=== PATIENT | male | born 1975 | race Caucasian/White ===

== ENCOUNTER 2016-12-29 21:42 | Inpatient (IN) | payer BC, OTHER ==
[~2016-12-29] VITALS: Ht 175.3 cm; Wt 64.0 kg
--- NOTE | 2016-12-29 22:17 | NUR ---
PREADMISSION NOTE: alert, 41 year old, well-nourished caucasion male met in [facility] for nurse assess. Patient responds to nurse's greeting and introduction with, " Yes, ma'am". Patient's color is light tannish-pink and his skin is clean, warm, dry and intact. Patient states that he is allergic to Neosporin and "any medication that contains Neosporin". Patient denies any pain and states that he has " never" had a seizure. Patient states that he has a history of anxiety, depression and asthma, though he states that he has not used Albuterol Inhaler for months. Patient states, " I think this [place] weather might kick up my asthma here". Vital signs are: [id number] 116/68, O2 Sat 98%. [facility] floor protocol ( medication reconciliation, controlled medication disposal, Q 4hr V/S) explained to patient and patient then nodded his head and said, " Okay". Patient is admitted for Heroin withdrawal. Patient states, " All I do is heroin".
--- NOTE | 2016-12-29 22:49 | NUR ---
ADMISSION NOTE: Patient admitted ambulatory to [facility], to room # 319, after being given tour of floor by ENVIRONMENT COORDINATOR. Patient's gait is brisk and steady. Patient is oriented to person, place, day, date and his personal situation. Easily reoriented to time. Patient's lung sounds have scattered rhonchi and wheezed noted bilaterally per auscultation and patient states, " I may want a breathing treatment later on, but I feel okay for now". Patient denies any pain and he weighs 141 lbs and he is 5 feet and 9 inches tall. Patient states that he has brought no medications with him and he really does not take any regular meds at home. Patient denies any PCP and he states that this admission is only his 2nd drug detox admission. His only other admission was in 2011, for 30 days, in [place], [place], at a place called [facility]. Patient is admitted for heroin withdrawal. Patient states that he uses Heroin daily, 1 gram IV. Last use was today, 12/29/16 in early afternoon, 1/2 gram IV. Patient states that he first started using heroin in 2004 and he has been using at current rate of 1 gram daily for about 2 years now. Patient's longest period of sobriety was for 2 months, in 2013. Patient states that he is really serious about quitting heroin and 'wants to reclaim his life' before he started using heroin. Vital signs are: [id number] 130/79, O2 Sat 96%, COWS 3. Patient oriented to his room and nurse call light. Patient took sandwich snack, cookies and juices. Patient is cooperative and verbally appropriate when interacting with nurse, though he is guarded, somewhat suspicious in manner/affect. Bed is locked and in lowest position, bed rails are up X 1 and call light within patient's easy reach.
[2016-12-29 22:53] LABS: *AMPHETAMINE, URINE NEGATIVE (NEGATIVE); *BARBITURATE, URINE NEGATIVE (NEGATIVE); *CANNABINOID, URINE NEGATIVE (NEGATIVE); *COCCAINE, URINE NEGATIVE (NEGATIVE); *OPIATE, URINE POSITIVE (NEGATIVE); *PHENCYCLIDINE SCREEN,URINE NEGATIVE (NEGATIVE)
[2016-12-29] MEDS ORDERED: MIRALAX 17 GM POWD.PACK PO PRN (23:00)
[2016-12-29] MEDS ORDERED: LOPERAMIDE HCL 2 MG CAPSULE PO PRN ×2 (23:00)
[2016-12-29] MEDS ORDERED: ACETAMINOPHEN 325 MG TABLET PO PRN (23:00)
[2016-12-29] MEDS ORDERED: IBUPROFEN 400 MG TABLET PO PRN (23:00)
[2016-12-29] MEDS ORDERED: MAGNESIUM HYDROXIDE 30 ML LIQUID UDC PO PRN (23:00)
[2016-12-29] MEDS ORDERED: MAG HYDROX/AL HYDROX/SIMETH 30 ML LIQUID UDC PO PRN (23:00)
[2016-12-29] MEDS ORDERED: BUPRENORPHINE HCL 2 MG TAB.SUBL SL PRN (23:00)
[2016-12-29 23:32] LABS: BASOPHILS # (AUTO) 0.1 K/uL (0.0-8.0); BASOPHILS % (AUTO) 0.9 % (0.0-2.0); EOSINOPHILS # (AUTO) 0.2 K/uL (0.0-0.7); EOSINOPHILS % (AUTO) 2.6 % (0.0-7.0); HEMATOCRIT 44.5 % (40-50); LYMPHOCYTES % (AUTO) 31.3 % (20.5-51.5); MEAN CORPUSCULAR HEMOGLOBIN 29.4 UUG (27.0-31.0); MEAN CORPUSCULAR HGB CONC 34 g/dL (32.0-37.0); MONOCYTES # (AUTO) 0.5 K/UL (0.1-1.30); MONOCYTES % (AUTO) 8.5 % (0.0-11.0); NEUTROPHILS # (AUTO) 3.6 K/UL (1.8-8.9); NEUTROPHILS % (AUTO) 56.7 % (38.5-71.5); PLATELET COUNT (AUTO) 200 K/UL (150-450); RED BLOOD CELL COUNT(AUTO) 5.12 MIL/UL (4.7-6.1); WHITE BLOOD COUNT (AUTO) 6.4 K/UL (4.0-11.2)
[2016-12-29] MEDS: ALBUTEROL SULFATE 2.5 MG/3 ML NEBU NEB PRN (23:38)
[2016-12-29] MEDS ORDERED: ALBUTEROL SULFATE 2.5 MG/3 ML NEBU ONE (23:46)
[2016-12-29 23:47] LABS: ALANINE AMINOTRANSFERASE 205 U/L (16-63); ALKALINE PHOSPHATASE 65 U/L (50-136); ASPARTATE AMINOTRANSFERASE 116 U/L (15-37); BILIRUBIN,TOTAL 0.7 mg/dL (0.2-1.0); CARBON DIOXIDE 35 mmol/L (21-32); CHLORIDE 97 mmol/L (98-107); GLUCOSE 119 mg/dL (74-106); MAGNESIUM 2.1 mg/dL (1.8-2.4); POTASSIUM 4.4 mmol/L (3.5-5.1); TOTAL PROTEIN, SERUM 8.5 g/dL (6.4-8.2); UREA NITROGEN, BLOOD 12 mg/dL (7-18)
[2016-12-30] VITALS: BP 126/76
[2016-12-30 00:02] LABS: ETHANOL < 3 MG/DL (0-0)
[2016-12-30] MEDS: ALBUTEROL SULFATE 2.5 MG/3 ML NEBU NEB PRN (00:19)
[2016-12-30] MEDS: diphenhydrAMINE 50 MG CAPSULE PO PRN (00:50)
[2016-12-30] MEDS: HYDROXYZINE PAMOATE 25 MG CAPSULE PO PRN (00:50)
--- NOTE | 2016-12-30 00:50 | NUR ---
PRN MEDICATIONS: Prn Benadryl 50 mg p.o. given per request for sleep medication and Prn Vistaril 50 mg p.o. given per c/o mild anxiety.
[2016-12-30] MEDS ORDERED: diphenhydrAMINE 50 MG CAPSULE ONE (00:59)
[2016-12-30] MEDS ORDERED: HYDROXYZINE PAMOATE 25 MG CAPSULE ONE (00:59)
--- NOTE | 2016-12-30 01:50 | NUR ---
REASSESSMENT PRN MEDICATIONS: Patient is sleeping soundly with eyes closed and respirations regular, unlabored at 12.
[2016-12-30 04:00] VITALS: BP 121/75
--- NOTE | 2016-12-30 06:30 | NUR ---
0630 Patient slept a total of 6 hours and he had 2 voids and no stools. Total intake was 1,091 ml p.o. Prn medications given noted separately per floor protocol. V/SS afebrile, last COWS at 0400 is 1. Patient is presently sleeping comfortably and in stable condition with eyes closed and respirations even, quiet, unlabored at 14.
--- NOTE | 2016-12-30 07:00 | NUR ---
Start of Shift Notes: Received patient in his room. Alert and verbally responsive. Oriented x 4. Able to make his needs known. Respirations even and unlabored. No SOB noted. Skin warm and dry to touch. Abdomen soft and non-distended with (+) BS in all 4 quadrants. No complains of N/V/D or abdominal discomfort noted. Bladder non-distended. No complains of dysuria. Voids independently. Ambulatory ad trini with steady gait. Patient is a 41 year old male admitted for opiate dependence who was placed on PRNs at this time. Has past medical hx of asthma, and back discs repair. Allergic to neosporin. FULL CODE. Regular diet. On fall and seizure precautions. Educated patient on his current plan of care and his medication regimen. All needs met and attended. Will continue to monitor closely.
[2016-12-30 08:00] VITALS: BP 115/68
[2016-12-30] MEDS ORDERED: BUPRENORPHINE HCL 2 MG TAB.SUBL SL PRN (08:30)
[2016-12-30] MEDS ORDERED: PNEUMOCOCCAL 23-VAL P-SAC VAC 0.5 ML VIAL IM ONE (09:00)
[2016-12-30] MEDS ORDERED: TUBERCULIN,PURIF.PROT.DERIV. 5 TU/0.1 ML TEST ID ONE (09:00)
[2016-12-30] MEDS: MULTIVITAMINS,THERAPEUTIC TABLET PO SCH (09:00)
[2016-12-30 12:00] VITALS: BP 121/81
[2016-12-30] MEDS: CLONIDINE HCL 0.1 MG TABLET PO PRN (12:16)
--- NOTE | 2016-12-30 12:16 | NUR ---
Clonidine 0.1mg PO given: Patient noted with complain of chills, hot flashes and mild anxiety. Appears flushed. COWS 4. Medicated patient with Clonidine 0.1mg PO as ordered. Will monitor for effectiveness.
--- NOTE | 2016-12-30 13:16 | NUR ---
Re-assessment: Per patient, PRN Clonidine was effective in reducing chills, anxiety and hot flashes.
[2016-12-30 16:00] VITALS: BP 132/81
[2016-12-30] MEDS: ONDANSETRON ODT 4 MG TAB.RAPDIS SL PRN (16:27)
[2016-12-30] MEDS: METHOCARBAMOL 750 MG TABLET PO PRN (16:27)
--- NOTE | 2016-12-30 16:27 | NUR ---
Robaxin 750 mg PO and Zofran 4 mg ODT given: COWS 16. Patient presented with runny nose, goosebumps, yawning, muscle aches and pains, dilated pupils, and nausea. Medicated patient with Robaxin 750 mg PO and Zofran 4 mg ODT as ordered. Will monitor for effectiveness.
[2016-12-30] MEDS: BUPRENORPHINE HCL 2 MG TAB.SUBL SL SCH ×2 (16:33→20:21)
--- NOTE | 2016-12-30 17:27 | NUR ---
Re-assessment: Per patient, PRN Zofran and Robaxin was effective in reducing muscle aches and pains, and nausea. PL 2/10.
--- NOTE | 2016-12-30 18:51 | NUR ---
End of Shift Notes: Patient is a 41 year old male admitted for opiate dependence who is on PRNs at this time. Prior to admission, patient was using 1 gram of Heroin daily x 12 years. VS monitored closely q 4 hours. No significant abnormalities noted. Withdrawal symptoms were closely monitored. Initial COWS 1 at 0800. COWS at 1200 was 4 due to chills, anxiety and hot flashes. Medicated patient with Clonidine 0.1mg PO for chills, anxiety, hot flashes and sweats with help after 1 hour. At 1600, patient presented with COWS of 16 showing restlessness, anxiety, agitation, sweats, yawning, piloerection of the skin, runny nose and nausea. Initiated Subutex taper at this time . Unable to participate in group and activities due to his withdrawal symptoms. Last COWS 9. Compliant with care and treatment Safety precautions in place. All needs met and attended. Will continue to monitor closely.
--- NOTE | 2016-12-30 19:55 | NUR ---
START OF SHIFT Received report from day shift nurse. Pt is lying in bed resting. He is a 41 yo male admitted to [facility] on 12/29 for heroin withdrawal. He is A&O x4 and ambulatory. Allergies to bacitracin, neomycin, polymyxin B. Pt is full code status and on a regular diet. He has a PMH of asthma and disc repair. On admission he reported using heroin 1 gram per day. Pt started a 5 day subutex taper today. Pt has wheezing in all lung cardenas. He denies SOB. Encouraged PRN breathing treatment, he refused and stated, "maybe later". He reports chills, hot and cold flashes, stomach cramps, and muscle aches. He is observed to have dilated pupils. Taper due tonight. Fall and seizure precautions in place. Bed is down with call light in reach.
[2016-12-30 20:00] VITALS: BP 134/90
[2016-12-30] MEDS: DICYCLOMINE HCL 20 MG TABLET PO PRN (20:21)
[2016-12-30] MEDS: IBUPROFEN 600 MG TABLET PO PRN (20:21)
--- NOTE | 2016-12-30 20:22 | NUR ---
PRN Bentyl and Motrin Pt reports stomach cramps, body aches 8/10, and headache. PRN Bentyl and Motrin administered.
--- NOTE | 2016-12-30 21:22 | NUR ---
PRN Bentyl and Motrin reassessment PRN Bentyl effective. Pt reports relief of stomach cramps. PRN Motrin effective. Pt reports body aches are reduced to 3/10 and headache is relieved.
[2016-12-31] VITALS: BP 119/81
[2016-12-31 04:00] VITALS: BP 130/86
[2016-12-31] MEDS: METHOCARBAMOL 750 MG TABLET PO PRN (04:56)
[2016-12-31] MEDS: CLONIDINE HCL 0.1 MG TABLET PO PRN (04:57)
--- NOTE | 2016-12-31 04:59 | NUR ---
PRN Clonidine and Robaxin Pt reports he has not been sleeping well. He has hot and cold flashes, restless legs, dilated pupils, and anxiety. COWS score 8. PRN Clonidine and Robaxin administered.
--- NOTE | 2016-12-31 06:00 | NUR ---
PRN Clonidine and Robaxin reassessment PRN Clonidine and Robaxin effective. Pt is lying comfortably in bed resting. Chills, muscle aches, and anxiety improved. He has not yet fallen back to sleep. COWS score is 3. Safety measures in place.
--- NOTE | 2016-12-31 07:14 | NUR ---
END OF SHIFT Report provided to day shift nurse. Pt is lying in bed resting. He is a 41 yo male admitted to [facility] on 12/29 for heroin withdrawal. He is A&O and ambulatory. Allergic to bacitracin, neomycin, polymyxin B. He is full code status and on a regular diet. He has a PMH of asthma and disc repair. Upon admission he admitted to using heroin 1 gram per day. 5 day subutex taper was started 12/30. Fall and seizure precautions in place. Bed is down with call light in reach. PRN Bentyl, Motrin, Clonidine, and Robaxin administered. He reports that he was awake off and on throughout the night. Last COWS was 3. He drank 1000mL and slept 4 hours. Safety measures in place.
--- NOTE | 2016-12-31 07:15 | NUR ---
Start of Shift Notes: Received patient in his room. Alert and verbally responsive. Oriented x 4. Able to make his needs known. Respirations even and unlabored. No SOB noted. Skin warm and dry to touch. Abdomen soft and non-distended with (+) BS in all 4 quadrants. No complains of N/V/D or abdominal discomfort noted. Bladder non-distended. No complains of dysuria. Voids independently. Ambulatory ad trini with steady gait. Patient is a 41 year old male admitted for opiate dependence who was placed on 5-day Subutex taper as ordered . Has past medical hx of asthma, and back discs repair. Allergic to Neosporin. FULL CODE. Regular diet. On fall and seizure precautions. Educated patient on his current plan of care and his medication regimen. Safety precautions in place. Slept for 4 hours. PRN Bentyl, Motrin, Robaxin and Clonidine was given during the night. All needs met and attended. Will continue to monitor closely.
[2016-12-31 08:00] VITALS: BP 119/75
[2016-12-31 08:08] LABS: HEPATITIS B SURFACE AG Negative (Negative)
[2016-12-31] MEDS: BUPRENORPHINE HCL 2 MG TAB.SUBL SL SCH ×3 (08:28→21:10)
[2016-12-31] MEDS: IBUPROFEN 600 MG TABLET PO PRN (08:28)
[2016-12-31] MEDS: MULTIVITAMINS,THERAPEUTIC TABLET PO SCH (08:28)
--- NOTE | 2016-12-31 08:28 | NUR ---
PRN Motrin 600 mg PO given: Patient noted with complain of generalized muscle aches 5/10 related to his withdrawal symptoms. Redirection provided but did not help. Mediated patient with Motrin 600 mg PO as ordered. Will monitor for effectiveness.
--- NOTE | 2016-12-31 09:28 | NUR ---
Re-assessment: Per patient, PRN Motrin was effective in reducing patient's muscle aches. PL 08/15.
[2016-12-31 12:00] VITALS: BP 116/77
--- NOTE | 2016-12-31 12:15 | NUR ---
Therapist prompted client to attend daily group therapy sessions. Client stated that is not interested in attending at this time.
[2016-12-31] MEDS: GABAPENTIN 300 MG CAPSULE PO SCH ×2 (14:09→21:10)
[2016-12-31] MEDS: BACLOFEN 10 MG TABLET PO SCH ×2 (14:09→21:10)
[2016-12-31 16:00] VITALS: BP 133/76
--- NOTE | 2016-12-31 18:50 | NUR ---
End of Shift Notes: Patient is a 41 year old male admitted for opiate dependence who is on PRNs at this time. Prior to admission, patient was using 1 gram of Heroin daily x 12 years. VS monitored closely q 4 hours. No significant abnormalities noted. Withdrawal symptoms were closely monitored. Initial COWS 7, presented with restlessness, anxiety, agitation, sweats, chills, hot flashes and myalgia. Medicated patient with Motrin 600mg PO as ordered for myalgia with help after 1 hour. Last COWS 3. Per patient, Subutex has been helping him with his withdrawal symptoms. Participated in group and activities due to his withdrawal symptoms. Compliant with care and treatment Safety precautions in place. All needs met and attended. Will continue to monitor closely.
--- NOTE | 2016-12-31 19:50 | NUR ---
START OF SHIFT Received report from day shift nurse. Pt is lying in bed watching TV. He is a 41 yo male admitted to [facility] on 12/29 for heroin withdrawal. He is A&O x4 and ambulatory. Pt is allergic to bacitracin, neomycin, polymyxin B. He is full code status and on a regular diet. His past medical history consists of asthma and disc repair. Upon admission he admitted to using heroin 1 gram per day. Pt started a 5 day subutex taper on 12/30. He presents with stomach cramps, nausea, dilated pupils, muscle aches, and anxiety. Taper due tonight. Fall and seizure precautions in place. Bed is down with call light in reach.
[2016-12-31 20:00] VITALS: BP 128/87
[2016-12-31] MEDS: diphenhydrAMINE 50 MG CAPSULE PO PRN (21:10)
[2016-12-31] MEDS: DICYCLOMINE HCL 20 MG TABLET PO PRN (21:10)
[2016-12-31] MEDS: ONDANSETRON ODT 4 MG TAB.RAPDIS SL PRN (21:10)
--- NOTE | 2016-12-31 21:11 | NUR ---
PRN Bentyl, Zofran, and Benadryl Pt reports stomach cramps, nausea, and inability to sleep. PRN Bentyl, Zofran, and Zofran administered.
[2016-12-31] MEDS: ALBUTEROL SULFATE 2.5 MG/3 ML NEBU NEB PRN (21:20)
--- NOTE | 2016-12-31 21:20 | NUR ---
PRN Breathing treatment Pt has wheezing throughout all lung cardenas. SpO2 95% on RA. He denies SOB. PRN Breathing treatment administered. Addendum: 01/01/17 at 0645 by JENISE BRUMFIELD RN Breathing treatment administered by RT.
--- NOTE | 2016-12-31 22:11 | NUR ---
PRN Bentyl, Zofran, and Benadryl reassessment PRN Bentyl and Zofran effective. Pt reports nausea and stomach cramps are relieved. PRN Benadryl not yet effective. Pt is lying in bed resting but has not fallen asleep.
[2017-01-01] VITALS: BP 127/83
[2017-01-01] MEDS: HYDROXYZINE PAMOATE 25 MG CAPSULE PO PRN ×2 (00:31→21:30)
--- NOTE | 2017-01-01 00:33 | NUR ---
PRN Vistaril Pt reports feeling anxious, restless, and unable to fall asleep. PRN Vistaril administered.
--- NOTE | 2017-01-01 01:33 | NUR ---
PRN Vistaril reassessment PRN Vistaril effective. Pt is relaxed in bed. Respirations even and unlabored. Safety measures in place.
--- NOTE | 2017-01-01 04:00 | NUR ---
0400 COWS deferred CIWA ordered Q4HWA. Pt is lying in bed resting with eyes closed. Vital signs obtained. Respirations even and unlabored. Safety measures in place.
--- NOTE | 2017-01-01 07:13 | NUR ---
END OF SHIFT Report provided to day shift nurse. Pt is lying in bed resting. He is a 41 yo male admitted to [facility] on 12/29 for heroin withdrawal. He is A&O and ambulatory. Allergies to bacitracin, neomycin, polymyxin B. He is full code status and on a regular diet. He has a past medical history of asthma and disc repair. One admission he reported using heroin 1 gram per day. Pt started a 5 day subutex taper on 12/30. PRN Bentyl, Zofran, Benadryl, and Vistaril administered. COWS scores were 6 and 4. He drank 855mL and slept 4 hours. Fall and seizure precautions in place. Bed is down with call light in reach.
--- NOTE | 2017-01-01 07:14 | NUR ---
Start of Shift Notes: Received patient in his room. Alert and verbally responsive. Oriented x 4. Able to make his needs known. Respirations even and unlabored. No SOB noted. Skin warm and dry to touch. Abdomen soft and non-distended with (+) BS in all 4 quadrants. No complains of N/V/D or abdominal discomfort noted. Bladder non-distended. No complains of dysuria. Voids independently. Ambulatory ad trini with steady gait. Patient is a 41 year old male admitted for opiate dependence who was placed on 5-day Subutex taper as ordered . Has past medical hx of asthma, and back discs repair. Allergic to Neosporin. FULL CODE. Regular diet. On fall and seizure precautions. Educated patient on his current plan of care and his medication regimen. Safety precautions in place. Slept for 4 hours. PRN Zofran, Bentyl, Benadryl, Zofran and Robaxin was given during the night. All needs met and attended. Will continue to monitor closely. Slept for 4 hours. Last COWS 4.
[2017-01-01 08:00] VITALS: BP 121/86
[2017-01-01] MEDS: MULTIVITAMINS,THERAPEUTIC TABLET PO SCH (08:37)
[2017-01-01] MEDS: GABAPENTIN 300 MG CAPSULE PO SCH ×3 (08:38→21:29)
[2017-01-01] MEDS: BACLOFEN 10 MG TABLET PO SCH ×3 (08:38→21:30)
[2017-01-01] MEDS ORDERED: BUPRENORPHINE HCL 2 MG TAB.SUBL SL SCH (09:00)
[2017-01-01 12:00] VITALS: BP 121/61
[2017-01-01] MEDS: BUPRENORPHINE HCL 2 MG TAB.SUBL SL SCH ×2 (14:55→21:29)
[2017-01-01] MEDS: DICYCLOMINE HCL 20 MG TABLET PO SCH ×2 (14:55→21:30)
[2017-01-01 16:00] VITALS: BP 117/70
--- NOTE | 2017-01-01 18:57 | NUR ---
End of Shift Notes: Patient is a 41 year old male admitted for opiate dependence who is on PRNs at this time. Prior to admission, patient was using 1 gram of Heroin daily x 12 years. VS monitored closely q 4 hours. No significant abnormalities noted. Withdrawal symptoms were closely monitored. Initial COWS 6 presented with restlessness, anxiety, agitation, sweats, chills, hot flashes and myalgia. Last COWS 2. Per patient, Subutex has been helping him with his withdrawal symptoms. Did not participate in group and activities due to his withdrawal symptoms. Compliant with care and treatment Safety precautions in place. All needs met and attended. Will continue to monitor closely.
--- NOTE | 2017-01-01 19:55 | NUR ---
START OF SHIFT Report received from day shift nurse. Pt is lying in bed watching TV. He is a 41 yo male admitted to [facility] on 12/29 for heroin withdrawal. He is A&O x4 and ambulatory. Pt is allergic to bacitracin, neomycin, polymyxin B. He is full code status and on a regular diet. His past medical history consists of asthma and disc repair. On admission he reported using heroin 1 gram per day. 5 day subutex taper was started on 12/30. He reports stomach cramps and muscle aches. Taper due tonight. Fall and seizure precautions in place. Bed is down with call light in reach.
[2017-01-01 20:00] VITALS: BP 111/66
--- NOTE | 2017-01-01 21:32 | NUR ---
PRN Vistaril Pt reports feeling anxious and unable to relax. PRN Vistaril administered.
[2017-01-01] MEDS: IPRATROPIUM BROMIDE 0.5 MG/2.5 ML NEBU NEB PRN (21:46)
--- NOTE | 2017-01-01 21:48 | NUR ---
PRN Breathing Treatment Pt has wheezing throughout all lung cardenas. He denies SOB. SpO2 97% on RA. RT administered PRN breathing treatment.
[2017-01-02] VITALS: BP 129/78
--- NOTE | 2017-01-02 04:00 | NUR ---
0400 Vitals refused and COWS deferred Pt refused to be woken for 0400 vitals. Respirations even and unlabored. COWS ordered Q4HWA. Safety measures in place.
--- NOTE | 2017-01-02 07:25 | NUR ---
END OF SHIFT Report provided to day shift nurse. Pt is lying in bed resting. He is a 41 yo male admitted to [facility] on 12/29 for heroin withdrawal. He is A&O x4 and ambulatory. Pt is allergic to bacitracin, neomycin, polymyxin B. He is full code status and on a regular diet. His past medical history consists of asthma and disc repair. On admission he reported using heroin 1 gram per day. 5 day subutex taper was started on 12/30. PRN Vistaril and breathing treatment administered. Last COWS was 6. He drank 1210mL and slept for 6 hours. Fall and seizure precautions in place. Bed is down with call light in reach.
--- NOTE | 2017-01-02 07:45 | NUR ---
START OF SHIFT Rcvd endorsement from ongoing nurse, clients is in bed, he presents with anxious mood, flat affect, skin moist/warm to touch, enlarged pupils, he reports restless legs and stomach cramps. Encouraged client to drink fluid as tolerated to facilitate detox. Encourage client to attend group therapy for skills to maintain sobriety. He is on 4th of 5 day Subutex taper, no ASE. PRN Vistaril for anxiety and breathing tx for wheezing, noted effective. Last COWS 6. he slept 6 hrs. Allergy to Neosporin, full code, regular diet. Call light within reach. Side rails x 2 up. Will continue to monitor client.
[2017-01-02 08:00] VITALS: BP 104/72
--- NOTE | 2017-01-02 08:21 | NUR ---
PRN Motrin 800mg Client reports pain 04/14 @ left lower molar, client is on Antibiotic PO therapy Amoxicillin 500mg TID. Addendum: 01/02/17 at 1816 by ARNOL PRECIADO RN wrong client
[2017-01-02] MEDS: BACLOFEN 10 MG TABLET PO SCH ×3 (08:40→21:27)
[2017-01-02] MEDS: BUPRENORPHINE HCL 2 MG TAB.SUBL SL SCH ×3 (08:42→21:28)
[2017-01-02] MEDS: GABAPENTIN 300 MG CAPSULE PO SCH ×3 (08:42→21:26)
[2017-01-02] MEDS: MULTIVITAMINS,THERAPEUTIC TABLET PO SCH (08:42)
[2017-01-02] MEDS: DICYCLOMINE HCL 20 MG TABLET PO SCH ×3 (08:42→21:26)
--- NOTE | 2017-01-02 08:42 | NUR ---
PNA vaccine administered to R deltoid, client tolerated well.
[2017-01-02] MEDS ORDERED: PNEUMOCOCCAL 23-VAL P-SAC VAC 0.5 ML VIAL IM ONE (09:00)
--- NOTE | 2017-01-02 09:21 | NUR ---
Reassessment ZAID Motrin 800mg Client reports pain 09/12 @ left lower molar, but tolerable. Addendum: 01/02/17 at 1815 by ARNOL PRECIADO RN wrong client
[2017-01-02 12:00] VITALS: BP 104/72
--- NOTE | 2017-01-02 13:19 | NUR ---
Therapist prompted client about group times. Client stated he would attend all groups today.
[2017-01-02 13:58] LABS: BILIRUBIN,DIRECT 0.3 mg/dL (0.0-0.2); BILIRUBIN,TOTAL 0.7 mg/dL (0.2-1.0); CREATININE 1.1 mg/dL (0.6-1.3); MAGNESIUM 1.9 mg/dL (1.8-2.4); POTASSIUM 3.7 mmol/L (3.5-5.1); TOTAL PROTEIN, SERUM 8.1 g/dL (6.4-8.2)
[2017-01-02] MEDS: IBUPROFEN 600 MG TABLET PO PRN (16:50)
--- NOTE | 2017-01-02 16:50 | NUR ---
PRN Motrin 600mg Client reports pain / @ R deltoid where PNA vaccine was administered, no swelling or redness noted. Call light within reach.
[2017-01-02 16:55] VITALS: BP 134/93
--- NOTE | 2017-01-02 17:50 | NUR ---
Reassessment PRN Motrin 600mg Client reports pain 2/10 @ R deltoid, but tolerable. Call light within reach.
--- NOTE | 2017-01-02 19:10 | NUR ---
END OF SHIFT Will endorse client to incoming nurse, client continues on 4 out of 5 day Subutex taper, to alleviate withdrawal symptoms of withdrawal from opioids. Last COWS 5. Client with anxiety, enlarged pupils, irritability, chills, fatigue, abdominal cramps. PRN Motrin for pain on R deltoid where PNA vaccine was administered. Client continue to present with anxious mood, flat affect. Client was compliant with group therapy. Client is fully ambulatory. Adequate intake 1920mL, void x 5, stool x 1. Call light within reach. Safety measures rendered and all needs met.
[2017-01-02 20:00] VITALS: BP 129/82
--- NOTE | 2017-01-02 20:00 | NUR ---
START OF SHIFT NOTE Pt is a 41 y/o male admitted for Heroin dependence and use. Pt has NKA but reported a PMH of asthma and repaired back discs. Per day shift nurse pt was placed on a 5 day Subutex taper (day 4) and is tolerating medication well with no s/e or a/r reported. Pt received Motrin 600 mg PO PRN during the day shift for left arm pain. Last COW:5 (1600). At this time pt is in his room watching television. Pt's skin is dry and intact. Pt's left upper arm has some swelling, but no redness noted. Pt stated " It's been like this since I got the vaccine." Pt was offered a ice pack to help reduce swelling, but the pt stated " I had one earlier and I didn't help much. I'm super sore from it too. I had some Motrin not too long ago so it helped." Pt denies any pain/discomfort at this time. PERRLA noted, lung auscultations clear in all lobes, bowel sounds present in all 4 quadrants, and skin turgor indicates adequate hydration. Pt encouraged to notify staff of any changes in condition or of any concerns. Pt verbalized an understanding. All safety measures in place; side rails up x 2, bed locked and in low position and call light within reach. Will continue to monitor. Addendum: 01/03/17 at 0636 by SHIKHA FITZPATRICK LVN RIGHT UPPER ARM Addendum: 01/03/17 at 0736 by SHIKHA FITZPATRICK LVN Pt has allergy to Neosporin
--- NOTE | 2017-01-02 21:26 | NUR ---
BENADRYL AND VISTARIL PRN ADMINISTRATION Pt reported having mild anxiety and also reported having trouble sleeping. Benadryl 50 mg PO PRN and Vistaril 50 mg PO PRN was given. Will monitor for effectiveness.
[2017-01-02] MEDS: HYDROXYZINE PAMOATE 25 MG CAPSULE PO PRN (21:28)
[2017-01-02] MEDS: diphenhydrAMINE 50 MG CAPSULE PO PRN (21:28)
--- NOTE | 2017-01-02 22:26 | NUR ---
VISTARIL AND BENADRYL PRN REASSESSMENT Pt stated " I feel calm, and the Benadryl is kicking in. I feel like it's helping the arm swelling too." PRNS effective. All safety measures in place. Will continue to monitor.
[2017-01-02] MEDS: IPRATROPIUM BROMIDE 0.5 MG/2.5 ML NEBU NEB PRN (22:36)
--- NOTE | 2017-01-03 | NUR ---
VITALS REFUSED/COW DEFERRED Pt refused to have vitals taken at this time. Pt was encouraged x3 with risks and benefits explained, but the pt still refused. Pt is currently sleeping with no signs of discomfort/distress noted. Breathing is even and unlabored. Respirations 16 breaths per minute. COW assessment deferred until pt is awake. All safety measures in place. Will continue to monitor.
--- NOTE | 2017-01-03 04:00 | NUR ---
VITALS REFUSED/ COW DEFERRED Pt refused to have vitals taken at this time. Pt was encouraged x3 with risks and benefits explained, but the pt still refused. Pt is currently sleeping with no signs of discomfort/distress noted. Breathing is even and unlabored. Respirations 14 breaths per minute. CIWA assessment deferred until pt is awake. All safety measures in place. Will continue to monitor. Addendum: 01/03/17 at 0534 by SHIKHA FITZPATRICK LVN Amended: Links added.
--- NOTE | 2017-01-03 07:36 | NUR ---
END OF SHIFT NOTE Pt is a 41 y/o male admitted for Heroin dependence and use. Pt has NKA but reported a PMH of asthma and repaired back discs. Pt continues on a 5 day Subutex taper (day 5) and is tolerating medication well with no s/e or a/r reported. Pt received Benadryl 50 mg PO PRN and Vistaril 50 mg PO PRN during the shift. Pt's right arm still has some swelling. No redness noted. Last COW:3 (1999). Pt slept for a total of 6 hours. All safety measures in place; side rails up x 2, bed locked and in low position and call light within reach. Endorsed to the oncoming nurse.
[2017-01-03] MEDS: IBUPROFEN 600 MG TABLET PO PRN ×2 (07:40→14:48)
--- NOTE | 2017-01-03 07:40 | NUR ---
START OF SHIFT & PRN Motrin 600mg Rcvd endorsement from ongoing nurse, clients is in bed, he presents with irritated mood, flat affect, R arm noted swollen, tender to touch c/ redness below the site on PNA vaccine, client reports pain 6/10, Motrin 600mg PO administered and ice pack applied to site, will reassess in 1 hr. He reports restless legs and stomach cramps and feeling tired, he stated, "I'm tired, I couldn't sleep well from the pain on my arm." Encouraged client to drink fluid as tolerated to facilitate detox. Encourage client to attend group therapy for skills to maintain sobriety. He is on last of 5 day Subutex taper, no ASE. PRN Vistaril for anxiety and Benadryl for inability to sleep, noted effective. Last COWS 3. he slept 6 hrs. Allergy to Neosporin, full code, regular diet. Call light within reach. Side rails x 2 up. Will continue to monitor client.
[2017-01-03] MEDS: DICYCLOMINE HCL 20 MG TABLET PO SCH ×3 (08:16→20:19)
[2017-01-03] MEDS: GABAPENTIN 300 MG CAPSULE PO SCH ×3 (08:16→20:18)
[2017-01-03] MEDS: MULTIVITAMINS,THERAPEUTIC TABLET PO SCH (08:16)
[2017-01-03] MEDS: BACLOFEN 10 MG TABLET PO SCH ×3 (08:16→20:18)
[2017-01-03 08:20] VITALS: BP 128/82
--- NOTE | 2017-01-03 08:40 | NUR ---
Reassessment PRN Motrin 600mg Client is in room, sound asleep, easy to arouse. RR 16 even and non-labored. Motrin effective.
[2017-01-03] MEDS ORDERED: BUPRENORPHINE HCL 2 MG TAB.SUBL SL SCH (09:00)
--- NOTE | 2017-01-03 10:00 | NUR ---
MD Notification Dr. Naik made aware of pain on R arm, swelling, redness and tender to touch. Per Dr. Naik to continue to monitor.
--- NOTE | 2017-01-03 10:32 | NUR ---
PRN Tylenol 650mg Client reports pain on R arm 5/10 swelling, redness and tender to touch, cold compress applied, will continue to monitor. Call light within reach.
--- NOTE | 2017-01-03 11:32 | NUR ---
Reassessment PRN Tylenol 650mg Client reports pain on R arm 07/15, but tolerable, Tylenol effective. Call light within reach.
[2017-01-03 12:45] VITALS: BP 139/81
--- NOTE | 2017-01-03 14:48 | NUR ---
PRN Motrin 600mg. Client reports pain 6/10 on R arm c/ swollen, tender to touch. Motrin 600mg PO administered and ice pack applied to site. Call light within reach. Will continue to monitor.
[2017-01-03] MEDS ORDERED: DICY20TA28 PO (14:59)
[2017-01-03] MEDS ORDERED: BACL10TA PO (14:59)
[2017-01-03] MEDS ORDERED: HYDR-3895 PO (14:59)
[2017-01-03] MEDS ORDERED: DIPH50CA37 PO (14:59)
[2017-01-03] MEDS ORDERED: ALBU8.5H8 INH (14:59)
[2017-01-03] MEDS ORDERED: GABA-534 PO ×2 (14:59)
[2017-01-03] MEDS ORDERED: IBUP-1955 PO (14:59)
--- NOTE | 2017-01-03 15:48 | NUR ---
Reassessment PRN Motrin 600mg. Client reports relief from pain 0/10 on R arm. Motrin 600mg effective. Call light within reach.
[2017-01-03 16:45] VITALS: BP 141/78
[2017-01-03 16:46] LABS: *AMPHETAMINE, URINE NEGATIVE (NEGATIVE); *BARBITURATE, URINE NEGATIVE (NEGATIVE); *CANNABINOID, URINE NEGATIVE (NEGATIVE); *COCCAINE, URINE NEGATIVE (NEGATIVE); *OPIATE, URINE NEGATIVE (NEGATIVE); *PHENCYCLIDINE SCREEN,URINE NEGATIVE (NEGATIVE)
--- NOTE | 2017-01-03 16:57 | NUR ---
Therapist prompted client to attend group, and client stated that he would attend the next group session.
--- NOTE | 2017-01-03 18:04 | NUR ---
END OF SHIFT Will endorse client to incoming nurse, client completed 5 day Subutex taper, tolerated well with no ASE. Client was admitted for withdrawal from opioids. Last COWS 3 @ 1600. Client with anxiety, chills, fatigue, abdominal cramps. PRN Motrin x 2, Tylenol x1 for pain on R deltoid, swelling diminished, tender to touch, where PNA vaccine was administered, per Dr. Naik to continue to monitor. Client continue to present with anxious mood, flat affect. Client was compliant with group therapy. Client is fully ambulatory. Adequate intake 1350mL, void x 4. Call light within reach. Safety measures rendered and all needs met.
--- NOTE | 2017-01-03 19:15 | NUR ---
START OF SHIFT Received 41 year old male patient admitted on 12/29/16 for Heroin dependency. Pt is full code with allergy to neosporin. Pt reports a PMHx of asthma, and repair of back discs. Pt reports using Heroin 1 gram daily for 12 years. Last dose was 1/2 gram on 12/29/16. Pt received 5 day Subutex taper started on 12/30/16 and tolerated well. Per endorsement, pt is scheduled to be DC tomorrow 01/04/17 to [facility]. Pt also noted with slight swelling, and redness to right arm after administration of PNA vaccine. Per endorsement, is aware. Pt is alert and oriented x4, breathing is even and unlabored, safety measures in place. Will continue to monitor.
[2017-01-03 20:00] VITALS: BP 139/79
[2017-01-03] MEDS: HYDROXYZINE PAMOATE 25 MG CAPSULE PO PRN (20:18)
[2017-01-03] MEDS: diphenhydrAMINE 50 MG CAPSULE PO PRN (20:19)
--- NOTE | 2017-01-03 20:19 | NUR ---
PRN BENADRYL/VISTARIL Pt complains of anxiety and inability to fall asleep. PRN Benadryl and Vistaril administered as ordered. Breathing is even and unlabored, safety measures in place. Will continue to monitor effectiveness.
[2017-01-03] MEDS: ONDANSETRON ODT 4 MG TAB.RAPDIS SL PRN (20:48)
--- NOTE | 2017-01-03 21:19 | NUR ---
PRN BENADRYL/VISTARIL REASSESSMENT PRN medications effective. Pt is lying in bed with eyes closed noted to be asleep. Respirations 16, breathing is even and unlabored. No facial grimacing noted. Safety measures in place. Will continue to monitor.
--- NOTE | 2017-01-04 | NUR ---
VITALS REFUSED, COWS DEFERRED 0000 vitals refused by pt. COWS deferred d/t pt lying in bed with eyes closed noted to be asleep. Respirations 16, breathing is even and unlabored, safety measures in place. Will continue to monitor.
--- NOTE | 2017-01-04 04:00 | NUR ---
VITALS REFUSED, COWS DEFERRED 0400 vitals refused by pt. COWS deferred d/t pt lying in bed with eyes closed noted to be asleep. Respirations 16, breathing is even and unlabored, safety measures in place. Will monitor.
--- NOTE | 2017-01-04 07:12 | NUR ---
END OF SHIFT Pt is a 41 year old male patient admitted on 12/29/16 for Heroin dependency. Pt is full code with allergy to neosporin. Pt reports a PMHx of asthma, and repair of back discs. [facility]. At 2018 he received PRN Benadryl, and Vistaril. At 2047 he received PRN Zofran. He slept a total of 6hrs, Intake:710mL Void:x2 BM:0 COWS:2. Pt remains alert and oriented x4, breathing is even and unlabored, safety measures in place. Will endorse to oncoming shift.
--- NOTE | 2017-01-04 07:27 | NUR ---
START OF SHIFT NOTE: Received report from cage shift manager nurse. Pt is a 41 year old male patient admitted on 12/29/16 for Heroin dependency. To be discharged this AM. Pt is alert and oriented X4. Color good, skin warm and dry. Respirations even and unlabored. Resting in bed. Safety precautions observed. Call light within reach.
[2017-01-04] MEDS: MULTIVITAMINS,THERAPEUTIC TABLET PO SCH (08:15)
[2017-01-04] MEDS: BACLOFEN 10 MG TABLET PO SCH (08:15)
[2017-01-04] MEDS: GABAPENTIN 300 MG CAPSULE PO SCH (08:15)
[2017-01-04] MEDS: DICYCLOMINE HCL 20 MG TABLET PO SCH (08:15)
--- NOTE | 2017-01-04 08:23 | NUR ---
VSS Discharge papers signed. No home meds.
[2017-01-04 08:51] VITALS: BP 118/72
--- NOTE | 2017-01-04 09:10 | NUR ---
Pt discharged in stable condition with all valuables and belongings. No home meds. Denies SI/HI. To [facility] via [facility] private car.
== END 2017-01-04 09:10 | disposition other institution (70) | DRG 895 ==
LOC: SRC 21:42
PROVIDERS: ADMIT Internal Medicine; ATTEND Internal Medicine
PROC: HZ2ZZZZ Detoxification Services for Substance Abuse Treatment (ICD-10-PCS; principal; 2016-12-29)
PROC: HZ31ZZZ Individual Counseling for Substance Abuse Treatment, Behavioral (ICD-10-PCS; 2016-12-31)
PROC: HZ41ZZZ Group Counseling for Substance Abuse Treatment, Behavioral (ICD-10-PCS; 2017-01-02)
DX: F11.23 Opioid dependence with withdrawal (principal); E87.3 Alkalosis; J45.20 Mild intermittent asthma, uncomplicated; F41.9 Anxiety disorder, unspecified; Z82.49 Family history of ischemic heart disease and other diseases of the circulatory system; Z80.1 Family history of malignant neoplasm of trachea, bronchus and lung; E86.0 Dehydration; F17.210 Nicotine dependence, cigarettes, uncomplicated; F32.9 Major depressive disorder, single episode, unspecified; T80.62XA Other serum reaction due to vaccination, initial encounter; M79.89 Other specified soft tissue disorders; T50.Z95A Adverse effect of other vaccines and biological substances, initial encounter; Y92.239 Unspecified place in hospital as the place of occurrence of the external cause
CPT/HCPCS: 36415; 70030-TC; 80307; 80361; 83735; 85025; 86580; 86705; 87340; 87806; 90732; 94640; 94664; G0480; J3590; Q0162; Q0163